=== PATIENT | male | born 1965 | race Caucasian/White ===

== ENCOUNTER 2017-03-24 18:29 | Emergency (ER) | payer OTHER ==
[~2017-03-24] VITALS: Ht 182.9 cm; Wt 108.9 kg
--- NOTE | ~2017-03-24 | EKG ---
PATIENT: REBEKAH DIMAS UNIT #: [id number] Ventricular Rate: 82 BPM Atrial Rate: 82 BPM P-R Interval: 170 ms QRS Duration: 70 ms Q-T Interval: 360 ms QTC Calculation(Bezet): 420 ms P Mesa: 43 degrees Calculated R Mesa: 35 degrees Calculated T Mesa: 90 degrees Diagnosis Line: Normal sinus rhythm Diagnosis Line: Septal infarct , age undetermined Diagnosis Line: Abnormal ECG Diagnosis Line: No previous ECGs available Diagnosis Line: Confirmed by JEFFREY SALAZAR MD ([id number]) on Diagnosis Line: 03/26/2017 9:42:35 AM INTERPRETING MD: MARTIN SIDDIQI
--- NOTE | ~2017-03-24 | CR72 ---
[facility] A Service of [facility] RADIOLOGY TEXT RESULTS PATIENT: REBEKAH DIMAS LOCATION: [facility] : 69 UNIT #: [id number] AGE: [address]: Tim Mares MD SEX: M ORDER DR: [id number] [facility] [address] [place], [place] [address] [id number] E MR#: [id number] Acc #: [id number] NAME: REBEKAH DIMAS : 1965 SEX: M STUDY DATE/TIME: 03/24/2017 22:07 UNIT: [facility] ROOM: STUDY DESCRIPTION: CR Chest Single View Portable Attending Physician: Tim Mares M.D. Ordering Physician: Tim Mares M.D. Primary Care Physician: No Primary Care Physician MEDICAL IMAGING REPORT This report is preliminary unless electronic signature is present EXAM Single view of the chest dated 03/24/17. COMPARISON None. HISTORY Chest pain and dizziness since 1800 hours today. History of asthma and gout. FINDINGS Single view of the chest was obtained. No significant acute cardiopulmonary disease. Minimal linear opacities are suspected in the left mid and lower lung zones suggestive of mild subsegmental atelectatic change. Heart, mediastinum and bones are unremarkable. Dictated by... José Justin M.D. THIS IS AN ELECTRONICALLY VERIFIED REPORT José Justin M.D. at 03/25/2017 5:06 PM CPR/bd TD: 03/25/2017 07:41 JOB #: [id number] MEDICAL IMAGING REPORT Page 1 of 1 COPY
[2017-03-24 19:42] LABS: BASOPHIL# 0.1 X10e3 (0-0.3); BASOPHIL% 0.8 % (0-2.5); EOSINOPHIL# 0.1 X10e3 (0-0.7); EOSINOPHIL% 1.2 % (0.0-7.0); HEMATOCRIT 43.8 % (38.0-50.0); HEMOGLOBIN 15.2 gm/dL (13.0-16.0); LYMPHOCYTE# 1.7 X10e3 (1.0-3.5); LYMPHOCYTE% 24.2 % (17.0-45.0); MEAN CELL VOLUME 89.9 FL (83-96); MEAN CORPUSCULAR HEMOGLOBIN 31.3 PG (28-34); MEAN CORPUSCULAR HGB CONC 34.8 g/dL (30-36); MEAN PLATELET VOLUME 8.1 FL (6.5-11.5); MONOCYTE# 0.8 X10e3 (0-1.0); MONOCYTE% 11.4 % (3.0-12.0); NEUTROPHIL# 4.3 X10e3 (1.5-7.1); NEUTROPHIL% 62.4 % (40-75); PLATELET COUNT 236 X10e3 (140-420); RED BLOOD COUNT 4.87 X10e (3.90-5.60); WHITE BLOOD COUNT 6.9 X10e3 (4.0-10.5)
[2017-03-24 19:49] LABS: DIFF IND NO
[2017-03-24 20:03] LABS: POC - CKMB 2.7 ng/mL (0.0-7.9); POC - TROPONIN <0.05 ng/mL (<=0.05)
[2017-03-24 20:03] LABS: ALBUMIN SERUM 4.5 g/dL (3.5-5.0); BILIRUBIN, DIRECT 0.2 mg/dL (0.0-0.2); BILIRUBIN,INDIRECT 1.1 mg/dL (0.0-0.9); BILIRUBIN,TOTAL 1.3 mg/dL (0.2-2.0); BUN/CREATININE RATIO 12.72; CREATININE SERUM 1.1 mg/dL (0.6-1.4); GLOM FILT RATE Estimated 78.4 mL/min (>60); POTASSIUM 3.5 mmol/L (3.5-5.1)
[2017-03-24 22:19] LABS: POC - CKMB 2.1 ng/mL (0.0-7.9); POC - TROPONIN <0.05 ng/mL (<=0.05)
== END 2017-03-24 23:34 | disposition home or self-care (01) ==
LOC: CED 18:29
PROVIDERS: Emergency Medicine
DX: R07.9 Chest pain, unspecified (principal); I10 Essential (primary) hypertension; Z90.49 Acquired absence of other specified parts of digestive tract
CPT/HCPCS: 36415; 71010; 80048; 80076; 82553; 84484; 85025; 85379; 93005; 99285